=== PATIENT | female | born 1970 | race Caucasian/White ===

== ENCOUNTER 2020-09-20 10:15 | Day surgery (SDC) | payer OTHER, SELFPAY ==
[2020-09-18 09:58] LABS: BASOPHILS # (AUTO) 0.1 K/uL (0.0-0.2); EOSINOPHILS # (AUTO) 0.2 K/uL (0.0-0.4); EOSINOPHILS % (AUTO) 2.6 % (0.0-4.0); HEMATOCRIT 36.1 % (36-48); HEMOGLOBIN 11.3 g/dL (12.0-16.0); LYMPHOCYTES # (AUTO) 1.5 K/uL (1.0-5.5); LYMPHOCYTES % (AUTO) 18.3 % (20.5-51.5); MEAN CORPUSCULAR HEMOGLOBIN 24 pg (27-31); MEAN CORPUSCULAR HGB CONC 31 % (32-36); MEAN CORPUSCULAR VOLUME 77 fL (79.0-98.0); MONOCYTES # (AUTO) 0.5 K/uL (0.0-1.0); MONOCYTES % (AUTO) 6.2 % (1.7-9.3); NEUTROPHILS # (AUTO) 5.9 K/uL (1.8-7.7); NEUTROPHILS % (AUTO) 71.9 % (40.0-70.0); PLATELET COUNT (AUTO) 355 K/uL (130-430); RED BLOOD CELL COUNT(AUTO) 4.67 MIL/uL (4.2-6.2); RED CELL DISTRIBUTION WIDTH 17.5 % (9.0-15.0); WHITE BLOOD COUNT (AUTO) 8.3 K/uL (4.8-10.8)
[2020-09-18 10:21] LABS: CALCIUM 8.2 mg/dL (8.4-11.0); CREATININE 0.89 mg/dL (0.55-1.30); POTASSIUM 3.9 mmol/L (3.5-5.1); TOTAL BILIRUBIN 0.2 mg/dL (0.0-1.0)
[~2020-09-20] VITALS: Ht 162.6 cm; Wt 190.5 kg
[2020-09-20] MEDS ORDERED: HYDROmorphone 1 MG INJ. 1 MG/ML CARTRIDGE IVP PRN (13:00)
[2020-09-20] MEDS ORDERED: ONDANSETRON HCL 4 MG/2 ML VIAL IVP PRN (13:00)
[2020-09-20] MEDS ORDERED: hydrALAZINE HCL 20 MG/ML VIAL IVP PRN (13:00)
[2020-09-20] MEDS ORDERED: KETOROLAC TROMETHAMINE 30 MG VIAL IVP PRN (13:00)
[2020-09-20 14:57] VITALS: BP_SYST 133
== END 2020-09-20 16:10 | disposition home or self-care (01) ==
LOC: SDS 10:15 → SMU 10:16 → SDS 16:10
PROVIDERS: ATTEND Obstetrics & Gynecology
DX: N92.0 Excessive and frequent menstruation with regular cycle (principal); R93.89 Abnormal findings on diagnostic imaging of other specified body structures; I10 Essential (primary) hypertension; E66.01 Morbid (severe) obesity due to excess calories; F41.9 Anxiety disorder, unspecified; E03.9 Hypothyroidism, unspecified; K21.9 Gastro-esophageal reflux disease without esophagitis; Z88.2 Allergy status to sulfonamides; Z79.899 Other long term (current) drug therapy
CPT/HCPCS: 36415; 58558; 80053; 84703; 85025; 86886; 86900; 86901; 87426; 88305; J7120